=== PATIENT | female | born 1940 | race Hispanic/Latino ===

== ENCOUNTER → 2018-02-03 | Outpatient (CLI) | payer OTHER, MEDICARE ==
[~2018-02-03] MED LIST: ALEN70TA47 PO; ATOR40TA71 PO; BEE550CA PO; BIMA12.5OS OU; CARV3.12 PO; CETI10TA57 PO; CYCL30DR OU; DICY10CA13 PO; ESCI10TA54 PO; ESOM20CA39 PO; HYDR12.54 PO; LINA145C PO; LISI-613 PO; MIRA25TA PO; RIVA20TA PO; TRAZ-185 PO
== END | disposition home or self-care (01) ==
LOC: OIH 09:32
PROVIDERS: ATTEND Internal Medicine
DX: M47.895 Other spondylosis, thoracolumbar region (principal)
CPT/HCPCS: 71046

== ENCOUNTER → 2018-05-09 | Outpatient (CLI) | payer OTHER, MEDICARE ==
[~2018-05-09] MED LIST changes: +ALEN70TA10 PO; -ALEN70TA47 PO
== END | disposition home or self-care (01) ==
LOC: OIH 10:10
PROVIDERS: ATTEND Internal Medicine
DX: I10 Essential (primary) hypertension (principal); M47.815 Spondylosis without myelopathy or radiculopathy, thoracolumbar region; I70.0 Atherosclerosis of aorta
CPT/HCPCS: 71046

== ENCOUNTER 2018-11-16 10:51 | Observation (INO) | payer OTHER, MEDICARE ==
[~2018-11-16] VITALS: Ht 162.6 cm; Wt 70.2 kg
[2018-11-16 11:58] LABS: BASOPHILS % (AUTO) 0.1 % (0.0-5.0); HEMATOCRIT 40.8 % (36-48); LYMPHOCYTES % (AUTO) 6.7 % (21.0-51.0); MEAN CORPUSCULAR HEMOGLOBIN 29.5 pg (27.0-33.0); MEAN CORPUSCULAR HGB CONC 33.8 g/dL (32.0-36.0); MEAN CORPUSCULAR VOLUME 87.2 fL (79-99); MONOCYTES % (AUTO) 3.3 % (3.0-13.0); NEUTROPHILS % (AUTO) 89.9 % (40.0-77.0); PLATELET COUNT (AUTO) 198 K/uL (130-400); RED BLOOD CELL COUNT(AUTO) 4.69 MIL/uL (4.00-5.50); RED CELL DISTRIBUTION WIDTH 14.8 % (11.0-15.5); WHITE BLOOD COUNT (AUTO) 8.8 K/uL (4.8-10.8)
[2018-11-16 11:59] LABS: CREATININE 1.1 mg/dL (0.5-1.5); POTASSIUM 3.3 mmol/L (3.5-5.1)
[2018-11-16] MEDS: 1/2 NORMAL SALINE 1,000 ML IV SCH ×2 (12:00→22:01)
[2018-11-16 12:03] LABS: ALBUMIN 3.9 g/dL (3.5-5.0); TOTAL PROTEIN, SERUM 7.6 g/dL (6.0-8.3)
[2018-11-16 12:14] VITALS: BP 169/92
[2018-11-16] MEDS ORDERED: IOHEXOL-350 75 ML VIAL IV ONE (12:21)
[2018-11-16 13:02] LABS: ERYTHROCYTE SEDIMENTATION RATE 5 MM/HR (0-30)
[2018-11-16] MEDS ORDERED: LACTULOSE 20 GM/30 ML UDCUP PO PRN (13:15)
[2018-11-16] MEDS ORDERED: LIDOCAINE HCL-MPF 1% 2ML VIAL IJ PRN (13:15)
[2018-11-16] MEDS ORDERED: GLUCAGON 1MG KIT 1 MG ML IM PRN (13:15)
[2018-11-16] MEDS ORDERED: POTASSIUM CHLORIDE 20 MEQ ERTAB PO PRN (13:15)
[2018-11-16] MEDS ORDERED: GUAIFENESIN-DM 200/20 MG 10 ML PO PRN (13:15)
[2018-11-16] MEDS ORDERED: POTASSIUM CHLORIDE 20MEQ/100ML 100 ML IV PRN (13:15)
[2018-11-16] MEDS ORDERED: HYDROMORPHONE 1 MG/1 ML AMP IVP PRN (13:15)
[2018-11-16] MEDS ORDERED: DIPHENHYDRAMINE HCL 25 MG CAPSULE PO PRN (13:15)
[2018-11-16] MEDS ORDERED: ACETAMINOPHEN 325 MG TAB PO PRN (13:15)
[2018-11-16] MEDS ORDERED: ZOLPIDEM TARTRATE 5 MG TAB PO PRN (13:15)
[2018-11-16] MEDS ORDERED: ENOXAPARIN SODIUM 40 MG/0.4 ML SYRINGE SQ SCH (13:15)
[2018-11-16] MEDS ORDERED: DEXTROSE 50%-WATER 50 ML DISP.SYRIN IV PRN (13:15)
[2018-11-16] MEDS ORDERED: CLONIDINE HCL 0.1 MG TABLET PO PRN (13:15)
[2018-11-16] MEDS ORDERED: ONDANSETRON HCL 4 MG/2 ML VIAL IVP PRN (13:15)
[2018-11-16] MEDS ORDERED: POTASSIUM CHLORIDE 10% ELIXIR 20 MEQ/15 ML UDCUP PO PRN (13:15)
[2018-11-16] MEDS ORDERED: ROSU20TA31 PO ×2 (15:37)
[2018-11-16] MEDS ORDERED: CIPR-245 PO (15:37)
[2018-11-16] MEDS ORDERED: LISI40TA4 PO ×3 (15:37→20:15)
[2018-11-16] MEDS ORDERED: BIMA12.5OS OD ×2 (15:37)
[2018-11-16] MEDS ORDERED: CALC-1174 PO ×2 (15:37)
[2018-11-16] MEDS ORDERED: ALEN70TA10 PO ×2 (15:37)
[2018-11-16 16:00] VITALS: BP 181/80
[2018-11-16] MEDS: INSULIN R PO SSI SQ SCH ×2 (16:30→21:00)
--- NOTE | 2018-11-16 16:39 | NUR ---
YAA OAKLEY CALLED REPORTED CT ABD RESUTLS STATED OK FOR PT TO HAVE DIET AND ORDERED ANTIBIOTICS FOR POSSIBLE UTI
[2018-11-16 18:45] LABS: APPEARANCE,URINE Clear (CLEAR); BILIRUBIN,URINE Negative (NEGATIVE); COLOR,URINE Yellow (YELLOW); GLUCOSE, URINE (UA) Negative (NEGATIVE); KETONES,URINE Negative (NEGATIVE); LEUKOCYTE ESTERASE ,URINE Negative (NEGATIVE); NITRATE,URINE Negative (NEGATIVE); OCCULT BLOOD,URINE Negative (NEGATIVE); PH,URINE 6.5 (5.0-8.0); PROTEIN,URINE Negative (NEGATIVE); UROBILINOGEN,URINE 0.2 mg/dL (0.2-1.0)
[2018-11-16] MEDS ORDERED: LEVOFLOXACIN 500 MG/D5W 100 ML 100 ML IV SCH (19:00)
[2018-11-16 19:50] VITALS: BP 133/67
[2018-11-16 23:33] VITALS: BP 125/60
[2018-11-17 03:50] VITALS: BP 134/72
[2018-11-17] MEDS: 1/2 NORMAL SALINE 1,000 ML IV SCH (04:37)
[2018-11-17] MEDS: INSULIN R PO SSI SQ SCH (06:35)
[2018-11-17 08:00] VITALS: BP 150/64
[2018-11-17] MEDS ORDERED: TAMS-1 PO ×2 (08:11)
[2018-11-17] MEDS ORDERED: LEVO500T2 PO ×2 (08:12)
[2018-11-17] MEDS ORDERED: CEFTRIAXONE SODIUM 1 GM IVP SCH (09:00)
[2018-11-17] MEDS ORDERED: PANTOPRAZOLE SODIUM 40 MG TABLET.DR PO SCH (09:00)
--- NOTE | 2018-11-17 09:00 | NUR ---
CM NOTE PT BEING DISCHARGED IN OBS STATUS, NO TRIGGERS TO CM , NO CONCERNS VOICED TO PRIMARY RN, DETAILED ASESSMENT DEFERRED Addendum: 11/17/18 at 1850 by KENDAL MINOR RN CM Amended: Links added.
== END 2018-11-17 10:57 | disposition home or self-care (01) ==
LOC: EDH 10:51 → EDHIP 11:06 → 4BH 12:15
PROVIDERS: ADMIT Internal Medicine; ATTEND Internal Medicine
DX: N12 Tubulo-interstitial nephritis, not specified as acute or chronic (principal); E11.9 Type 2 diabetes mellitus without complications; E78.5 Hyperlipidemia, unspecified; I10 Essential (primary) hypertension; I25.10 Atherosclerotic heart disease of native coronary artery without angina pectoris; Z79.899 Other long term (current) drug therapy
CPT/HCPCS: 36415; 72072; 72100; 74178; 80053; 81003; 82948 ×2; 83690; 85025; 85651; 96365; 96375; 99284; G0378 ×22; J1170; J1956; Q9967

== ENCOUNTER 2018-11-18 13:05 | Emergency (ER) | payer OTHER, MEDICARE ==
[~2018-11-18 13:05] MED LIST changes: +BIMA12.5OS OD; +CALC-1174 PO; +CIPR-245 PO; +LEVO500T2 PO; +LISI40TA4 PO; +ROSU20TA31 PO; +TAMS-1 PO
[2018-11-18] MEDS ORDERED: SODIUM CHLORIDE 0.9% 1000ML 1,000 ML IV ONE ×2 (13:33→14:29)
[2018-11-18 13:47] LABS: BASOPHILS % (AUTO) 0.6 % (0.0-5.0); EOSINOPHILS % (AUTO) 0.4 % (0.0-8.0); HEMATOCRIT 46.2 % (36-48); LYMPHOCYTES % (AUTO) 22.6 % (21.0-51.0); MEAN CORPUSCULAR HEMOGLOBIN 29.6 pg (27.0-33.0); MEAN CORPUSCULAR HGB CONC 34.1 g/dL (32.0-36.0); MEAN CORPUSCULAR VOLUME 86.8 fL (79-99); MONOCYTES % (AUTO) 6.9 % (3.0-13.0); NEUTROPHILS % (AUTO) 69.5 % (40.0-77.0); PLATELET COUNT (AUTO) 184 K/uL (130-400); RED BLOOD CELL COUNT(AUTO) 5.33 MIL/uL (4.00-5.50); WHITE BLOOD COUNT (AUTO) 10.8 K/uL (4.8-10.8)
[2018-11-18 13:55] LABS: CREATININE 1.2 mg/dL (0.5-1.5); POTASSIUM 3.7 mmol/L (3.5-5.1)
[2018-11-18 14:01] LABS: ALBUMIN 3.6 g/dL (3.5-5.0); BILIRUBIN,TOTAL 1.3 mg/dL (0.2-1.0); TOTAL PROTEIN, SERUM 7.2 g/dL (6.0-8.3)
[2018-11-18] MEDS ORDERED: MORPHINE SULFATE 4 MG/1ML SYG ONE (14:28)
[2018-11-18] MEDS ORDERED: ONDANSETRON HCL 4 MG/2 ML VIAL ONE ×2 (14:28→17:03)
[2018-11-18 16:24] LABS: APPEARANCE,URINE Clear (CLEAR); BILIRUBIN,URINE Negative (NEGATIVE); COLOR,URINE Yellow (YELLOW); GLUCOSE, URINE (UA) Negative (NEGATIVE); KETONES,URINE Trace mg/dL (NEGATIVE); LEUKOCYTE ESTERASE ,URINE Negative (NEGATIVE); NITRATE,URINE Negative (NEGATIVE); OCCULT BLOOD,URINE Negative (NEGATIVE); PH,URINE 6.5 (5.0-8.0); PROTEIN,URINE Negative (NEGATIVE); UROBILINOGEN,URINE 0.2 mg/dL (0.2-1.0)
== END 2018-11-18 18:14 | disposition home or self-care (01) ==
LOC: EDH 13:05
DX: K52.9 Noninfective gastroenteritis and colitis, unspecified (principal); I25.10 Atherosclerotic heart disease of native coronary artery without angina pectoris; E78.5 Hyperlipidemia, unspecified; I10 Essential (primary) hypertension; Z88.5 Allergy status to narcotic agent; Z79.899 Other long term (current) drug therapy
CPT/HCPCS: 36415; 74176; 80053; 81003; 83605 ×2; 83690; 85025; 87040 ×2; 96361; 96374; 96375; 96376; 99285; J2270; J2405 ×2; J7030 ×2

== ENCOUNTER → 2019-02-16 | Outpatient (CLI) | payer OTHER, MEDICARE ==
[~2019-02-16] MED LIST changes: -ATOR40TA71 PO; -BEE550CA PO; -BIMA12.5OS OU; -CARV3.12 PO; -CETI10TA57 PO; -CIPR-245 PO; -CYCL30DR OU; -DICY10CA13 PO; -ESCI10TA54 PO; -ESOM20CA39 PO; -HYDR12.54 PO; -LINA145C PO; -LISI-613 PO; -MIRA25TA PO; -TRAZ-185 PO
== END | disposition home or self-care (01) ==
LOC: RAH 10:40
PROVIDERS: ATTEND Internal Medicine Gastroenterology
DX: R14.0 Abdominal distension (gaseous) (principal); R10.9 Unspecified abdominal pain; R11.11 Vomiting without nausea
CPT/HCPCS: 78264; A9541

== ENCOUNTER → 2019-12-13 | Outpatient (CLI) | payer OTHER, MEDICARE | END | disposition home or self-care (01) | LOC: RAH 13:34 | PROVIDERS: ATTEND Internal Medicine | DX: I70.0 Atherosclerosis of aorta (principal); J06.9 Acute upper respiratory infection, unspecified; R06.02 Shortness of breath; M47.814 Spondylosis without myelopathy or radiculopathy, thoracic region | CPT/HCPCS: 71046 ==

== ENCOUNTER → 2020-02-21 | Outpatient (CLI) | payer OTHER, MEDICARE ==
[~2020-02-21] MED LIST changes: -ALEN70TA10 PO; +ALEN70TA69 PO
== END | disposition home or self-care (01) ==
LOC: SHCH 10:30
PROVIDERS: ATTEND Internal Medicine Cardiovascular Disease
DX: I83.893 Varicose veins of bilateral lower extremities with other complications (principal)
CPT/HCPCS: 93970

== ENCOUNTER → 2020-02-25 | Outpatient (CLI) | payer OTHER, MEDICARE | END | disposition home or self-care (01) | LOC: OIH 10:11 | PROVIDERS: ATTEND Internal Medicine | DX: S93.402A Sprain of unspecified ligament of left ankle, initial encounter (principal); X58.XXXA Exposure to other specified factors, initial encounter; Y92.89 Other specified places as the place of occurrence of the external cause; Y93.89 Activity, other specified; Y99.8 Other external cause status | CPT/HCPCS: 73600 ==

== ENCOUNTER 2021-02-13 17:59 | Emergency (ER) | payer OTHER, MEDICARE ==
[~2021-02-13] VITALS: Ht 152.4 cm; Wt 68.9 kg
[~2021-02-13 17:59] MED LIST changes: -ALEN70TA69 PO; +ALEN70TA80 PO; -LISI40TA4 PO; +LISI40TA9 PO
[2021-02-13] MEDS ORDERED: ONDANSETRON 4MG INJ ONE (18:19)
[2021-02-13 18:31] LABS: APPEARANCE,URINE Clear (CLEAR); BILIRUBIN,URINE Negative (NEGATIVE); COLOR,URINE Yellow (YELLOW); GLUCOSE, URINE (UA) Negative (NEGATIVE); KETONES,URINE Negative (NEGATIVE); LEUKOCYTE ESTERASE ,URINE Trace (NEGATIVE); NITRATE,URINE Negative (NEGATIVE); OCCULT BLOOD,URINE Moderate (NEGATIVE); PH,URINE 6.5 (5.0-8.0); PROTEIN,URINE Negative (NEGATIVE)
[2021-02-13 18:39] LABS: BACTERIA,URINE Few /HPF (None Seen); MUCUS,URINE None Seen LPF (None Seen); SQUAMOUS EPITHELIAL CELL,UR Few /HPF (0-2)
[2021-02-13 18:43] LABS: BASOPHILS % (AUTO) 0.2 % (0.0-5.0); EOSINOPHILS % (AUTO) 0.2 % (0.0-8.0); LYMPHOCYTES % (AUTO) 14.8 % (21.0-51.0); MEAN CORPUSCULAR HEMOGLOBIN 29.1 pg (27.0-33.0); MEAN CORPUSCULAR HGB CONC 33.3 g/dL (32.0-36.0); MEAN CORPUSCULAR VOLUME 87.2 fL (79-99); MONOCYTES % (AUTO) 3.5 % (3.0-13.0); PLATELET COUNT (AUTO) 161 K/uL (130-400); RED BLOOD CELL COUNT(AUTO) 4.13 MIL/uL (4.00-5.50); RED CELL DISTRIBUTION WIDTH 14.4 % (11.0-15.5); WHITE BLOOD COUNT (AUTO) 6.4 K/uL (4.8-10.8)
[2021-02-13 19:08] LABS: CREATININE 1.2 mg/dL (0.5-1.5); POTASSIUM 3.8 mmol/L (3.5-5.1)
[2021-02-13 19:13] VITALS: BP 122/49
[2021-02-13 19:17] LABS: ALBUMIN 3.8 g/dL (3.5-5.0); BILIRUBIN,TOTAL 1.3 mg/dL (0.2-1.0); CRP QUANTITATIVE 3.5 mg/L (0.00-9.0); TOTAL PROTEIN, SERUM 7.3 g/dL (6.0-8.3)
[2021-02-13] MEDS ORDERED: CEPH500B PO (19:30)
[2021-02-13] MEDS ORDERED: ONDA4TAB10 PO (19:30)
[2021-02-13] MEDS ORDERED: ONDANSETRON 4MG INJ IVP ONE (19:30)
[2021-02-13] MEDS ORDERED: CEFTRIAXONE 1G VIAL IVP ONE (20:00)
== END 2021-02-13 19:50 | disposition home or self-care (01) ==
LOC: EDH 17:59
DX: N39.0 Urinary tract infection, site not specified (principal); I10 Essential (primary) hypertension; I25.10 Atherosclerotic heart disease of native coronary artery without angina pectoris; M19.90 Unspecified osteoarthritis, unspecified site; Z79.899 Other long term (current) drug therapy; Z88.5 Allergy status to narcotic agent
CPT/HCPCS: 36415; 71045; 80053; 81001; 83690; 84484; 85025; 86140; 96374; 96375; 99284; J0696; J2405

== ENCOUNTER 2021-10-11 12:11 | Emergency (ER) | payer OTHER, MEDICARE ==
[~2021-10-11] VITALS: Ht 157.5 cm; Wt 68.0 kg
[~2021-10-11 12:11] MED LIST changes: +CEPH500B PO; +ONDA4TAB10 PO
[2021-10-11] MEDS ORDERED: 0.9%NACL 1000ML 1,000 ML IV SCH (12:30)
[2021-10-11] MEDS ORDERED: ONDANSETRON 4MG INJ IVP ONE (12:30)
[2021-10-11] MEDS ORDERED: ACETAMINOPHEN 500 MG TABLET PO SCH (12:30)
[2021-10-11 12:38] LABS: BASOPHILS % (AUTO) 0.3 % (0.0-5.0); EOSINOPHILS % (AUTO) 0.9 % (0.0-8.0); HEMATOCRIT 33.6 % (36-48); LYMPHOCYTES % (AUTO) 21.9 % (21.0-51.0); MEAN CORPUSCULAR HEMOGLOBIN 29.2 pg (27.0-33.0); MEAN CORPUSCULAR HGB CONC 33.3 g/dL (32.0-36.0); MEAN CORPUSCULAR VOLUME 87.7 fL (79-99); MONOCYTES % (AUTO) 5.1 % (3.0-13.0); NEUTROPHILS % (AUTO) 71.5 % (40.0-77.0); PLATELET COUNT (AUTO) 139 K/uL (130-400); RED BLOOD CELL COUNT(AUTO) 3.83 MIL/uL (4.00-5.50); RED CELL DISTRIBUTION WIDTH 13.8 % (11.0-15.5); WHITE BLOOD COUNT (AUTO) 5.7 K/uL (4.8-10.8)
[2021-10-11 12:50] LABS: CREATININE 1.2 mg/dL (0.5-1.5); POTASSIUM 3.9 mmol/L (3.5-5.1)
[2021-10-11 12:54] LABS: ALBUMIN 3.5 g/dL (3.5-5.0); TOTAL PROTEIN, SERUM 6.7 g/dL (6.0-8.3)
[2021-10-11 14:16] LABS: APPEARANCE,URINE CLEAR (CLEAR); BILIRUBIN,URINE NEGATIVE (NEGATIVE); COLOR,URINE YELLOW (YELLOW); GLUCOSE, URINE (UA) NEGATIVE (NEGATIVE); KETONES,URINE NEGATIVE (NEGATIVE); LEUKOCYTE ESTERASE ,URINE SMALL (NEGATIVE); NITRATE,URINE NEGATIVE (NEGATIVE); OCCULT BLOOD,URINE TRACE-INTACT (NEGATIVE); PROTEIN,URINE NEGATIVE (NEGATIVE); UROBILINOGEN,URINE 0.2 mg/dL (0.2-1.0)
[2021-10-11 14:44] LABS: BACTERIA,URINE Rare /HPF (None Seen); RBC,URINE 0-1 /HPF (0-1); SQUAMOUS EPITHELIAL CELL,UR Rare /HPF (0-2)
[2021-10-11] MEDS ORDERED: ONDA4TAB10 PO (14:58)
[2021-10-11] MEDS ORDERED: CEPH500B PO (14:58)
[2021-10-11] MEDS ORDERED: CEFTRIAXONE 1G VIAL IVP SCH (15:00)
[2021-10-11 15:56] VITALS: BP 156/65
== END 2021-10-11 15:58 | disposition home or self-care (01) ==
LOC: EDH 12:11
DX: N39.0 Urinary tract infection, site not specified (principal); E86.0 Dehydration; R11.2 Nausea with vomiting, unspecified; M19.90 Unspecified osteoarthritis, unspecified site; Z20.822 Contact with and (suspected) exposure to COVID-19; I10 Essential (primary) hypertension; I25.10 Atherosclerotic heart disease of native coronary artery without angina pectoris
CPT/HCPCS: 36415; 71045; 80053; 81001; 83690; 84484; 85025; 87635; 87804 ×2; 96361; 96374; 96375; 99284; C9803; J0696; J2405; J7030

== ENCOUNTER 2022-04-24 13:12 | Emergency (ER) | payer OTHER, MEDICARE ==
[~2022-04-24] VITALS: Ht 160 cm; Wt 81.6 kg
[2022-04-24 13:14] VITALS: BP 117/69
[2022-04-24] MEDS ORDERED: ONDANSETRON 4MG INJ IVP ONE ×2 (14:30→15:00)
[2022-04-24 15:14] LABS: HEMATOCRIT 35.4 % (36-48); LYMPHOCYTES % (AUTO) 18.9 % (21.0-51.0); MEAN CORPUSCULAR HEMOGLOBIN 29.1 pg (27.0-33.0); MEAN CORPUSCULAR HGB CONC 33.6 g/dL (32.0-36.0); MEAN CORPUSCULAR VOLUME 86.6 fL (79-99); MONOCYTES % (AUTO) 10.7 % (3.0-13.0); NEUTROPHILS % (AUTO) 70.4 % (40.0-77.0); PLATELET COUNT (AUTO) 123 K/uL (130-400); RED BLOOD CELL COUNT(AUTO) 4.09 MIL/uL (4.00-5.50); RED CELL DISTRIBUTION WIDTH 13.7 % (11.0-15.5); WHITE BLOOD COUNT (AUTO) 3.2 K/uL (4.8-10.8)
[2022-04-24 15:24] LABS: CREATININE 1.3 mg/dL (0.5-1.5); POTASSIUM 4.1 mmol/L (3.5-5.1)
[2022-04-24 15:33] LABS: ALBUMIN 3.4 g/dL (3.5-5.0); TOTAL PROTEIN, SERUM 6.7 g/dL (6.0-8.3)
[2022-04-24] MEDS ORDERED: ONDA4TAB10 PO (16:39)
== END 2022-04-24 16:49 | disposition home or self-care (01) ==
LOC: EDH 13:12
DX: R11.2 Nausea with vomiting, unspecified (principal); I10 Essential (primary) hypertension; M19.90 Unspecified osteoarthritis, unspecified site; I25.10 Atherosclerotic heart disease of native coronary artery without angina pectoris; K21.9 Gastro-esophageal reflux disease without esophagitis; Z90.49 Acquired absence of other specified parts of digestive tract; Z88.5 Allergy status to narcotic agent; Z79.899 Other long term (current) drug therapy; Z20.822 Contact with and (suspected) exposure to COVID-19
CPT/HCPCS: 99285; 96374; 71045; 87635; 84484; 80053; 85025; 87804 ×2; 36415; 93005; C9803; J2405

== ENCOUNTER → 2022-08-10 | Outpatient (CLI) | payer OTHER, MEDICARE | END | disposition home or self-care (01) | LOC: RAH 08-04 09:40 | PROVIDERS: ATTEND Internal Medicine | DX: I67.82 Cerebral ischemia (principal); R41.3 Other amnesia; G30.9 Alzheimer's disease, unspecified | CPT/HCPCS: 70551 ==

== ENCOUNTER 2023-02-06 20:10 | Emergency (ER) | payer OTHER, MEDICARE ==
[~2023-02-06] VITALS: Ht 160 cm; Wt 65.8 kg
[~2023-02-06 20:10] MED LIST changes: -ROSU20TA31 PO; +ROSU20TA73 PO
[2023-02-06 21:20] LABS: BASOPHILS # (AUTO) 0.03 K/uL (0.00-0.20); BASOPHILS % (AUTO) 0.4 % (0.0-5.0); EOSINOPHILS # (AUTO) 0.08 K/uL (0.00-0.70); HEMATOCRIT 37.4 % (36-48); IMMATURE GRANULOCYTE ABSOLUTE 0.01 K/uL (0-1); LYMPHOCYTES # (AUTO) 2.4 K/uL (1.0-4.8); LYMPHOCYTES % (AUTO) 29.9 % (21.0-51.0); MEAN CORPUSCULAR HEMOGLOBIN 29.7 pg (27.0-33.0); MEAN CORPUSCULAR HGB CONC 33.2 g/dL (32.0-36.0); MEAN CORPUSCULAR VOLUME 89.5 fL (79-99); MONOCYTES # (AUTO) 0.5 K/uL (0.1-1.0); MONOCYTES % (AUTO) 6.1 % (3.0-13.0); NEUTROPHILS % (AUTO) 62.5 % (40.0-77.0); PLATELET COUNT (AUTO) 176 K/uL (130-400); RED BLOOD CELL COUNT(AUTO) 4.18 MIL/uL (4.00-5.50); RED CELL DISTRIBUTION WIDTH 14.2 % (11.0-15.5); WHITE BLOOD COUNT (AUTO) 7.9 K/uL (4.8-10.8)
[2023-02-06 21:21] LABS: ADD UA MICROSCOPIC YES; APPEARANCE,URINE CLEAR (CLEAR); BILIRUBIN,URINE NEGATIVE (NEGATIVE); COLOR,URINE COLORLESS (YELLOW); GLUCOSE, URINE (UA) NEGATIVE (NEGATIVE); KETONES,URINE NEGATIVE (NEGATIVE); LEUKOCYTE ESTERASE ,URINE NEGATIVE Leu/uL (NEGATIVE); NITRATE,URINE NEGATIVE (NEGATIVE); PH,URINE 6.5 (5.0-8.0); PROTEIN,URINE NEGATIVE (NEGATIVE); UROBILINOGEN,URINE 0.2 mg/dL (0.2-1.0)
[2023-02-06 21:23] LABS: BACTERIA,URINE RARE /HPF (None Seen); RBC,URINE 0-1 /HPF (0-1); SQUAMOUS EPITHELIAL CELL,UR FEW /HPF (0-2)
[2023-02-06] MEDS ORDERED: HYDRALAZINE 20MG/ML VIAL IV ONE (21:30)
[2023-02-06 21:31] LABS: CREATININE 1.2 mg/dL (0.5-1.5); POTASSIUM 4.4 mmol/L (3.5-5.1)
[2023-02-06 21:38] LABS: ALBUMIN 3.6 g/dL (3.5-5.0); TOTAL PROTEIN, SERUM 7.9 g/dL (6.0-8.3)
[2023-02-06 21:54] VITALS: BP 142/74; PULSE 91; RESP 16; O2SAT 100
== END 2023-02-06 22:57 | disposition home or self-care (01) ==
LOC: EDH 20:10
DX: I10 Essential (primary) hypertension (principal); E11.9 Type 2 diabetes mellitus without complications; E78.00 Pure hypercholesterolemia, unspecified; I48.91 Unspecified atrial fibrillation; F41.9 Anxiety disorder, unspecified; F32.A Depression, unspecified; K21.9 Gastro-esophageal reflux disease without esophagitis; Z79.899 Other long term (current) drug therapy; Z88.5 Allergy status to narcotic agent
CPT/HCPCS: 99285; 96374; 71045; 84484; 80053; 85025; 81001; 36415; 93005; J0360

== ENCOUNTER → 2023-06-14 | Outpatient (CLI) | payer OTHER, MEDICARE | END | disposition home or self-care (01) | LOC: RAH 11:08 | PROVIDERS: ATTEND Internal Medicine | DX: I10 Essential (primary) hypertension (principal); R06.09 Other forms of dyspnea; G95.29 Other cord compression | CPT/HCPCS: 71046 ==

== ENCOUNTER → 2023-07-21 | Outpatient (CLI) | payer OTHER, MEDICARE | END | disposition home or self-care (01) | LOC: RAH 08:48 | PROVIDERS: ATTEND Internal Medicine | DX: S52.531A Colles' fracture of right radius, initial encounter for closed fracture (principal); S69.91XA Unspecified injury of right wrist, hand and finger(s), initial encounter; X58.XXXA Exposure to other specified factors, initial encounter; Y93.89 Activity, other specified; Y92.89 Other specified places as the place of occurrence of the external cause; Y99.8 Other external cause status | CPT/HCPCS: 73090; 73120 ==

== ENCOUNTER → 2024-01-20 | Outpatient (CLI) | payer OTHER, MEDICARE ==
[~2024-01-20] MED LIST changes: +ONDA-243 PO; -ONDA4TAB10 PO
== END | disposition home or self-care (01) ==
LOC: RAH 15:10
PROVIDERS: ATTEND Internal Medicine
DX: M19.041 Primary osteoarthritis, right hand (principal); M19.031 Primary osteoarthritis, right wrist; M79.89 Other specified soft tissue disorders; M25.531 Pain in right wrist; M79.641 Pain in right hand
CPT/HCPCS: 73100; 73120

== ENCOUNTER → 2024-01-23 | Outpatient (CLI) | payer OTHER, MEDICARE | END | disposition home or self-care (01) | LOC: RAH 15:49 | PROVIDERS: ATTEND Internal Medicine | DX: R01.1 Cardiac murmur, unspecified (principal); R06.02 Shortness of breath | CPT/HCPCS: 71046 ==